=== PATIENT | female | born 1965 | race Caucasian/White ===

== ENCOUNTER 2017-02-18 15:11 | Emergency (ER) | payer OTHER ==
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
[~2017-02-18 15:11] MED LIST: AMOXICILLIN PO; BENTYL20 M1 PO; GUAIFENSEN DM PO; OMEPRAZOLE40 MG PO; PHENERGAN25 M1 PO; STOOL SOFTENER; ZOLOFT PO; ZYRTEC PO
== END 2017-02-18 17:34 | disposition home or self-care (01) ==
LOC: SED 15:11
DX: S39.012A Strain of muscle, fascia and tendon of lower back, initial encounter (principal); F17.200 Nicotine dependence, unspecified, uncomplicated; V43.52XA Car driver injured in collision with other type car in traffic accident, initial encounter; Y92.410 Unspecified street and highway as the place of occurrence of the external cause
CPT/HCPCS: 70450; 72100; 72125; 96372; 99284; J1885